=== PATIENT | male | born 1950 | race Caucasian/White ===

== ENCOUNTER 2024-09-25 11:58 | Inpatient (IN) | payer SELFPAY ==
[~2024-09-25] VITALS: Ht 162.6 cm; Wt 82.1 kg
[2024-09-25] MEDS: BLOOD SUGAR DIAGNOSTIC STRIP TEST SCH (00:15)
[2024-09-25] MEDS: FOLIC ACID 1 MG, THIAMINE HCL 100 MG, MVI, ADULT NO.1 10 ML in DEXTROSE 5% WATER 1,000 ML IV ONE (03:11)
[2024-09-25 13:13] LABS: CHLORIDE 100 mEq/L (98-107); POTASSIUM 3.8 mEq/L (3.5-5.1); SODIUM 133 mEq/L (136-145)
[2024-09-25 13:14] LABS: CALCIUM 9.3 mg/dL (8.7-10.4); CARBON DIOXIDE 26 mEq/L (21-32)
[2024-09-25 13:17] LABS: PROTHROMBIN TIME 11.2 sec (9.6-11.0)
[2024-09-25 13:19] LABS: GLUCOSE 207 mg/dL (70-105); UREA NITROGEN BLOOD 20 mg/dL (9-23)
[2024-09-25 13:40] LABS: BASOPHILS % 0.6 % (0.0-2.0); HEMATOCRIT. 42.7 % (42.0-52.0); HEMOGLOBIN. 14.5 g/dL (14.0-18.0); LYMPHOCYTES % 14.2 % (20.0-50.0); MEAN CORPUSCULAR HEMOGLOBIN 29.5 pg (28.0-32.0); MEAN CORPUSCULAR VOLUME 86.8 fL (80.0-94.0); MONOCYTES % 12.4 % (2.0-8.0); NEUTROPHILS % 67.8 % (40.0-76.0); PLATELET 202 x1000/uL (130-400); RED BLOOD CELL COUNT 4.92 mill/uL (4.7-6.1); RED CELL DISTRIBUTION WIDTH 13.9 % (11.6-14.6); WHITE BLOOD COUNT 11.6 x1000/uL (4.5-11.0)
[2024-09-25 13:56] LABS: ETHANOL BLOOD < 10 mg/dL (<10)
[2024-09-25] MEDS: ASPIRIN 325MG EC TABLET PO ONE (14:50)
[2024-09-25] MEDS ORDERED: ACETAMINOPHEN 325MG TABLET PO PRN ×2 (15:00)
[2024-09-25] MEDS ORDERED: CLONIDINE 0.1MG TABLET PO PRN (15:00)
[2024-09-25] MEDS ORDERED: DOCUSATE SODIUM 100MG CAPSULE PO PRN (15:00)
[2024-09-25] MEDS ORDERED: IPRATROPIUM/ALBUTEROL 0.5-3(2.5)MG/3ML NEB HHN PRN (15:00)
[2024-09-25] MEDS ORDERED: ONDANSETRON HCL 4MG/2ML INJ IV PRN (15:00)
[2024-09-25] MEDS ORDERED: MAGNESIUM/ALUMINUM HYDROXIDE/SIMETHICONE 30ML UDC PO PRN (15:00)
[2024-09-25 15:27] LABS: IRON 23 ug/dL (65-175)
[2024-09-25 15:28] LABS: TRIGLYCERIDE 260 mg/dL (0-150)
[2024-09-25 15:29] LABS: LDL CHOLESTEROL 67 mg/dL (5-100)
[2024-09-25 15:30] LABS: ALANINE AMINOTRANSFERASE 13 IU/L (10-49); ALBUMIN 4.9 g/dL (3.2-4.8); ASPARTATE AMINOTRANSFERASE 18 IU/L (<34); BILIRUBIN DIRECT 0.1 mg/dL (<=3.0); BILIRUBIN TOTAL 0.4 mg/dL (0.1-1.0); CHOLESTEROL 133 mg/dL (<200); HDL CHOLESTEROL 33 mg/dL (>55)
[2024-09-25 15:31] LABS: PROTEIN TOTAL 7.8 g/dL (6.0-8.3); TOTAL IRON BINDING CAPACITY 337 ug/dl (250-425)
[2024-09-25 15:34] LABS: T4 FREE 1.38 ng/dL (0.89-1.76); THYROID STIMULATING HORMONE 0.61 uIU/mL (0.55-4.78)
[2024-09-25] MEDS: IOHEXOL-350 100 ML BOTTLE ONE (15:50)
[2024-09-25] MEDS ORDERED: DEXTROSE 50% WATER 50ML SYRINGE IV PRN (16:00)
[2024-09-25] MEDS: LIDOCAINE 5% PATCH TOP SCH (16:46)
[2024-09-25 17:08] LABS: AMMONIA < 17 uMol/L (<32)
[2024-09-25] MEDS: MAGNESIUM 2 G PREMIX 50 ML IV NR (18:09)
[2024-09-25] MEDS: FERROUS SULFATE 325MG TABLET PO SCH (18:17)
[2024-09-25] MEDS: GEMFIBROZIL 600MG TABLET PO SCH (18:17)
[2024-09-25] MEDS: INSULIN LISPRO 100 UNITS/ML SUBCUT SCH (18:20)
[2024-09-25] MEDS ORDERED: ZOLPIDEM TARTRATE 5MG TABLET PO PRN (21:00)
[2024-09-26] VITALS: BP 156/81; PULSE 82; RESP 18; TEMP 36.44736; O2SAT 98
[2024-09-26] MEDS: ATORVASTATIN CALCIUM 40MG TABLET PO SCH (00:14)
[2024-09-26] MEDS: FAMOTIDINE 20MG TABLET PO SCH (00:14)
[2024-09-26] MEDS: ENOXAPARIN 40MG/0.4ML SYR SUBCUT SCH (00:15)
[2024-09-26] MEDS: INSULIN GLARGINE 100 UNITS/ML SUBCUT SCH (00:18)
[2024-09-26 00:42] LABS: CREATINE KINASE MB FRACTION < 0.5 ng/mL (0.5-3.6)
[2024-09-26 00:43] LABS: CREATINE KINASE 85 IU/L (46-171); TROPONIN I HIGH SENSITIVITY 6 ng/L (3.0-53)
[2024-09-26 04:00] VITALS: BP 106/58; PULSE 63; RESP 18; TEMP 35.94732; TEMP 36.44736; O2SAT 98
[2024-09-26 06:31] LABS: CALCIUM 9.3 mg/dL (8.7-10.4); CARBON DIOXIDE 25 mEq/L (21-32); CHLORIDE 102 mEq/L (98-107); POTASSIUM 3.6 mEq/L (3.5-5.1); SODIUM 135 mEq/L (136-145)
[2024-09-26 06:32] LABS: CREATINE KINASE MB FRACTION < 0.5 ng/mL (0.5-3.6); TROPONIN I HIGH SENSITIVITY 6 ng/L (3.0-53)
[2024-09-26 06:37] LABS: CREATINE KINASE 66 IU/L (46-171); CREATININE 0.8 mg/dL (0.6-1.3); GLUCOSE 159 mg/dL (70-105); UREA NITROGEN BLOOD 20 mg/dL (9-23)
[2024-09-26 07:03] LABS: HEMATOCRIT 41.5 % (42.0-52.0); HEMOGLOBIN 13.7 g/dL (14.0-18.0); MEAN CORPUSCULAR HEMOGLOBIN 28.7 pg (28.0-32.0); MEAN CORPUSCULAR HGB CONC 33.1 g/dL (31.0-37.0); MEAN CORPUSCULAR VOLUME 86.7 fL (80.0-94.0); PLATELET 200 x1000/uL (130-400); RED BLOOD CELL COUNT 4.78 mill/uL (4.7-6.1); RED CELL DISTRIBUTION WIDTH 13.9 % (11.6-14.6)
[2024-09-26] MEDS: ASPIRIN 81MG EC TABLET PO SCH (09:00)
[2024-09-26] MEDS: LOSARTAN 25 MG TABLET PO SCH (09:00)
[2024-09-26 15:51] VITALS: BP 142/86; PULSE 82; RESP 18; TEMP 36.696
[2024-09-26 16:00] VITALS: BP 118/62; PULSE 67; RESP 18; TEMP 36.22512; O2SAT 98
[2024-09-26] MEDS ORDERED: ATOR20TA PO (19:43)
[2024-09-26] MEDS ORDERED: METF-415 PO (19:43)
[2024-09-26] MEDS ORDERED: LOSA25TA26 PO (19:43)
[2024-09-26] MEDS ORDERED: LINA5TAB PO (19:43)
[2024-09-26 20:00] VITALS: BP 157/70; PULSE 63; RESP 20; TEMP 36.6696; O2SAT 96
[2024-09-26 21:15] LABS: CLARITY URINE CLEAR (CLEAR); COLOR URINE YELLOW (YELLOW); GLUCOSE URINE 3+ (NEGATIVE); KETONES URINE NEGATIVE (NEGATIVE); LEUKOCYTE ESTERASE URINE NEGATIVE (NEGATIVE); NITRITE URINE NEGATIVE (NEGATIVE); OCCULT BLOOD URINE NEGATIVE (NEGATIVE); PH URINE 5.5 (4.5-8.0); PROTEIN URINE TRACE (NEGATIVE); SPECIFIC GRAVITY URINE 1.026 (1.005-1.030); UROBILINOGEN URINE 0.2 E.U./dL (0.2-1.0)
[2024-09-26 21:28] LABS: *AMPHETAMINES SCREEN URINE NEGATIVE (NEGATIVE); *BARBITURATES SCREEN URINE NEGATIVE (NEGATIVE); *BENZODIAZEPINES SCREEN URINE NEGATIVE (NEGATIVE); *COCAINE SCREEN URINE NEGATIVE (NEGATIVE); CANNABINOID URINE SCREEN NEGATIVE (NEGATIVE); ECSTASY MDMA SCREEN URINE NEGATIVE (NEGATIVE); METHADONE URINE SCREEN NEGATIVE (NEGATIVE); OPIATES URINE SCREEN NEGATIVE (NEGATIVE); PHENCYCLIDINE URINE SCREEN NEGATIVE (NEGATIVE)
[2024-09-26 21:32] LABS: OSMOLALITY URINE 749 mOsm/kg (500-850)
[2024-09-26 21:46] LABS: SODIUM URINE RANDOM 26 mEq/L
[2024-09-26 22:08] LABS: BACTERIA URINE 1+; RBC URINE NONE SEEN /hpf (0-2); SQUAMOUS EPITHELIAL CELL URINE FEW /lpf (RARE/1+)
[2024-09-26 22:09] LABS: WBC URINE 0-2 /hpf (0-2)
[2024-09-27] VITALS: BP 130/70; PULSE 56; RESP 18; TEMP 36.55848; O2SAT 98
[2024-09-27 04:00] VITALS: BP 138/70; PULSE 59; RESP 18; TEMP 36.55848; O2SAT 97
[2024-09-27 06:33] LABS: CHLORIDE 103 mEq/L (98-107); POTASSIUM 4.2 mEq/L (3.5-5.1); SODIUM 137 mEq/L (136-145)
[2024-09-27 06:34] LABS: CALCIUM 9.8 mg/dL (8.7-10.4); CARBON DIOXIDE 27 mEq/L (21-32)
[2024-09-27 06:39] LABS: CREATININE 0.8 mg/dL (0.6-1.3); GLUCOSE 170 mg/dL (70-105); UREA NITROGEN BLOOD 18 mg/dL (9-23)
[2024-09-27] MEDS ORDERED: METF-415 PO (07:04)
[2024-09-27] MEDS ORDERED: LINA5TAB PO (07:04)
[2024-09-27] MEDS ORDERED: ASPI-1406 PO (07:04)
[2024-09-27] MEDS ORDERED: LOSA25TA26 PO (07:04)
[2024-09-27] MEDS ORDERED: FERR-63 PO (07:04)
[2024-09-27] MEDS ORDERED: LIP40 PO (07:04)
[2024-09-27 08:00] VITALS: BP 125/82; PULSE 57; RESP 18; TEMP 36.55848; O2SAT 99
[2024-09-27 09:23] VITALS: RESP 18
[2024-09-27 09:49] VITALS: BP 126/82; PULSE 57; TEMP 97.8; O2SAT 99
== END 2024-09-27 10:50 | disposition short-term general hospital (02) | DRG 47 ==
LOC: ER 12:16 → 5WST 14:35 → EDBEDREQTM 14:36 → EDBEDREQ 14:36 → EDBEDREQSVC 22:55 → 8WST 09-26 15:07
PROVIDERS: ADMIT Internal Medicine; ATTEND Internal Medicine
DX: G45.9 Transient cerebral ischemic attack, unspecified (principal); G92.8 Other toxic encephalopathy; E87.1 Hypo-osmolality and hyponatremia; D72.829 Elevated white blood cell count, unspecified; E11.65 Type 2 diabetes mellitus with hyperglycemia; E78.5 Hyperlipidemia, unspecified; E83.42 Hypomagnesemia; G47.00 Insomnia, unspecified; G51.0 Bell's palsy; I10 Essential (primary) hypertension; G89.29 Other chronic pain; M47.812 Spondylosis without myelopathy or radiculopathy, cervical region; F10.90 Alcohol use, unspecified, uncomplicated; Y90.9 Presence of alcohol in blood, level not specified; I16.0 Hypertensive urgency; K59.00 Constipation, unspecified; R32 Unspecified urinary incontinence; Z79.4 Long term (current) use of insulin; Z79.82 Long term (current) use of aspirin; Z79.84 Long term (current) use of oral hypoglycemic drugs; Z79.899 Other long term (current) drug therapy; Z87.891 Personal history of nicotine dependence; Z91.199 Patient's noncompliance with other medical treatment and regimen due to unspecified reason
CPT/HCPCS: 36415; 70496; 70498; 70551; 71045; 80048; 80061; 80076; 80305; 80320; 81003; 82010; 82140; 82550; 82553; 82728; 82962; 83036; 83540; 83550; 83735; 83930; 83935; 84300; 84439; 84443; 84484; 85025; 85027; 93005; 93970; 97161; 97165; 99285; J1650; J1815; J3411; J3475; J3490; J7070; Q9967; G0480